=== PATIENT | female | born 1950 | race Caucasian/White ===

== ENCOUNTER 2022-01-16 01:39 | Emergency (ER) | payer OTHER, SELFPAY ==
[2022-01-16] VITALS (97 sets, daily range): BP systolic 122–229; BP diastolic 52–170; PULSE 31–88; RESP 5–29; TEMP 36.3–36.9; O2SAT 94–100
--- NOTE | 2022-01-16 01:30 | RT.EKG_ITS ---
APPROVED REPORT Exam: Resting ECG Reason for Exam: chest pain Patient Location: E HR:44 bpm ECG Measurements Heart Rate 44 AXIS MN 172 P 71 QRSd 95 QRS -19 QT 488 T 80 QTc 417 Conclusion Predominant 2:1 AV block...most complexes 2 Ps Left atrial enlargement...P, P'>60mS, <-0.15mV V1 Borderline ST depression, lateral leads...ST <-0.07mV, I aVL V5 V6 Physician: no stemi, 2nd degree block, 2:[address] elevation or depression
--- NOTE | 2022-01-16 01:45 | DI.RAD_ITS ---
Exam(s) XR PORTABLE CHEST AP EXAM: XR PORTABLE CHEST AP CLINICAL HISTORY: sob, 2nd degree heart block. TECHNIQUE: 2D digital imaging was performed. COMPARISON: No exams were available for comparison FINDINGS: Single AP portable view. Chest leads and cardiac pad noted Heart size is upper normal. The mediastinum is not widened. Lungs are clear. No infiltrates nor obvious pleural effusions. IMPRESSION: No acute pulmonary findings on this single AP portable view of the chest. DATA REPOSITORY: RADIATION DOSE DELIVERED: All CT scans at this facility use at least one of these dose optimization techniques: automated exposure control; mA and/or kV adjustment per patient size (includes targeted e xams where dose is matched to clinical indication); or iterative reconstruction.
--- NOTE | 2022-01-16 01:59 | ED.GENADUL_ITS ---
Discharge Plan Disposition Patient Disposition: [facility] Condition: Serious Discharge Details Clinical Impression: Heart block AV second degree Primary Care Provider: [facility] ED Provider: Eliezer Irizarry Home Meds and New Rx's Prescriptions: No Action losartan 50 mg Tablet 50 mg PO DAILY 0RF ibuprofen 200 mg Tablet 200 mg PO Q6H PRN0RF Viactiv 500-100-40 mg-unit-mcg Tablet,Chewable 1 tab PO BID 0RF Medical Decision Making This is a pleasant 71-year-old female with a past medical history of attention, diabetes mellitus, mild obesity, previous tobacco abuse, a distant history of melanoma that was surgically excised, who presents today for evaluation of palpitation and shortness of breath. Patient states that about a month ago she began to get more short of breath than normal when performing activity. She had no associated chest pain, or pleuritic chest pain. She has no cough fever or chills. The symptoms continued until about a week ago when they developed a notable increase in severity. She became short of breath with mild activity, but this was always immediately relieved with rest. She had no chest pain or shortness of them either. This evening at about midnight she woke up out of sleep and had a fluttering/palpitation feeling in her chest, she felt dizzy as well at that time. She had no chest pain that either. She called EMS she was brought in for further evaluation. Currently she states that she feels comfortable. She denies any dizziness headache or chest pain now. She denies any new medications. She denies any known family history of pacemaker use, but her grandparents did have cardiac disease. She denies any recent episodes of syncope. No other complaints at this time. No other modifying factors. Of historical note in 2019 the patient did have some palpitations. She was seen and evaluated at [facility] in. Zio patch at that time showed no evidence of significant pain, A. fib or a flutter. Physical exam is unremarkable. Patient currently is hypertensive, and has a heart rate that oscillates between the 40s 160s. She denies any current dizziness or chest pain. EKG demonstrates evidence of a second-degree 2-1 AV block. No evidence of significant ST elevation or depression. Bedside ultrasound was performed bedside limited echocardiogram showed good cardiac contractility, no pericardial effusion, no evidence of significant wall motion abnormality. Right ventricle does not appear overly dilated or stretch currently. At time of arrival patient immediately had pacer pads placed, will give 80 small fluid bolus, will monitor closely for electrolyte abnormality, get cardiac troponins, reach out to [facility] for potential electrophysiology consult and transfer. No indication for emergent epinephrine or dopamine at this time his blood pressure is elevated. And patient is otherwise asymptomatic currently. 4:11 AM Laboratory work-up has returned relatively unremarkable. CBC normal, electrolytes stable. Troponin normal, proBNP normal showing no signs of heart strain. Thyroid function normal. COVID test negative, chest x-ray unremarkable. Patient's heart rate remains in the low 40s, unclear if she currently feels asymptomatic at this time while resting in bed She denies any significant chest pain currently. Blood pressure is improved to the 180s systolic over 60s diastolic. I did contact [facility] cardiology and discussed the case with . After review of the case and imaging, she agrees with the plan for transfer to [facility] for further cardiology evaluation and management. Patient will be sent by [facility] for medical transfer. Patient's blood pressure is stable, she is asymptomatic while resting, we will keep the patient. I Did Discuss Transvenous Pacing with Cardiology, They Do Not Recommend It at This Time Based on Her Current Symptoms. I have extensively reviewed the treatment plan with the patient. I have addressed all patient concerns at this time. I have also discussed the plan with the admitting physician and they agree with the current assessment and plan and have agreed to assume responsibility for the patient. All parties demonstrate verbal understanding and agreement with our assessment and plan at this time. The documentation in this chart was dictated using Zango dictation software. Please excuse any dictation errors. At time of transfer the patient was reassessed and continued to demonstrate No signs of acute respiratory distress requiring intubation, hypotension requiring pressor support, or rapidly declining mental status. The patient is stable for transport. HPI General Date/Time Provider Initiated Documentation: 01/16/22 01:55 . HPI Narrative: This is a pleasant 71-year-old female with a past medical history of attention, diabetes mellitus, mild obesity, previous tobacco abuse, a distant history of melanoma that was surgically excised, who presents today for evaluation of palpitation and shortness of breath. Patient states that about a month ago she began to get more short of breath than normal when performing activity. She had no associated chest pain, or pleuritic chest pain. She has no cough fever or chills. The symptoms continued until about a week ago when they developed a notable increase in severity. She became short of breath with mild activity, but this was always immediately relieved with rest. She had no chest pain or shortness of them either. This evening at about midnight she woke up out of sleep and had a fluttering/palpitation feeling in her chest, she felt dizzy as well at that time. She had no chest pain that either. She called EMS she was brought in for further evaluation. Currently she states that she feels comfortable. She denies any dizziness headache or chest pain now. She denies any new medications. She denies any known family history of pacemaker use, but her grandparents did have cardiac disease. She denies any recent episodes of syncope. No other complaints at this time. No other modifying factors. Of historical note in 2019 the patient did have some palpitations. She was seen and evaluated at [facility] in. Zio patch at that time showed no evidence of significant pain, A. fib or a flutter. Related Data Home Medications Medication Instructions Recorded Confirmed calcium-vitamin D3-vitamin K 500 1 tab PO BID 01/16/22 01/16/22 mg-100 unit-40 mcg chewable tablet ibuprofen 200 mg tablet 200 mg PO Q6H PRN 01/16/22 01/16/22 losartan 50 mg tablet 50 mg PO DAILY 01/16/22 01/16/22 Allergies Allergy/AdvReac Type Severity Reaction Status Date / Time Penicillins AdvReac Mild Nausea Unverified 01/16/22 02:05 General Stated Complaint: SOB HUAN: 2 Review of Systems All systems reviewed & are unremarkable except as noted in HPI and below PFSH All Active Problems (Updated 01/16/22 @ 04:14 by Eliezer Irizarry DO) Heart block AV second degree (Acute) Social History Smoking/Tobacco Use Status: Former Tobacco Use Smoking risk assessment performed?: Yes Substance use type: does not use Do you feel safe at home: Yes Do you feel safe in your relationship?: Yes Exam Narrative Exam Narrative: 1.Const: Well-nourished, Well-developed, appearing stated age 2.Eyes: PERRL, no conjunctival injection, and symmetrical lids. 3.ENT: Atraumatic external nose and ears. Moist MM. Neck: Symmetric, trachea midline, No thyromegaly. 4.CVS: +S1/S2, No murmurs or gallops. Peripheral pulses 2+ and equal in all extremities. Brisk capillary refill in all extremities. 5.RESP: Unlabored respiratory effort. Clear to auscultation bilaterally. No wheezes rales or rhonchi 6.GI: Soft, Nontender/Nondistended, No hepatosplenomegaly. No guarding or rebound. 7.MSK: Normocephalic/Atraumatic, Extremities w/o deformity or ttp No cyanosis or clubbing, Normal movement of all extremities, no calf tenderness. 8.Skin: Warm, Dry. No rashes or lesions. 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 Sensation grossly intact, no focal neurologic deficits. 10.Psych: (AAO) x3. Appropriate mood and affect Course Vital Signs Vital signs: Vital Signs Temperature 36.3 C L 01/16/22 01:39 Pulse 61 01/16/22 01:39 Respiratory Rate 14 01/16/22 01:39 Blood Pressure 229/141 H 01/16/22 01:39 Pulse Oximetry 100 01/16/22 01:39 Temperature 36.3 C L 01/16/22 01:39 Temperature Source Skin 01/16/22 01:39 Pulse 61 01/16/22 01:39 Respiratory Rate 13 01/16/22 01:44 Respiratory Effort Non-Labored 01/16/22 01:44 Respiratory Depth Normal 01/16/22 01:44 Respiratory Pattern Normal 01/16/22 01:44 Blood Pressure 229/141 H 01/16/22 01:39 Blood Pressure Position Supine 01/16/22 01:39 Pulse Oximetry 100 01/16/22 01:39 Oxygen Delivery Method Room Air 01/16/22 01:39 Oxygen Flow Rate 0 01/16/22 01:39
[2022-01-16 02:09] LABS: Abs Immature Grans 0.01 10^3/uL (0.0-0.06); Absolute Basophil Count 0.04 10^3/uL (0.0-0.2); Absolute Eosinophil Count 0.23 10^3/uL (0.0-0.7); Absolute Lymphocyte Count 2.45 10^3/uL (1.2-3.4); Absolute Neutrophil Count 5.13 10^3/uL (1.2-6.7); Basophils % 0.5; Eosinophils % 2.7; HCT 42.3 % (36.0-46.0); HGB 13.8 g/dL (11.2-15.7); Immature Grans % 0.1; Lymphocytes % 28.3; MCH 30.3 pg (27.0-33.0); MCHC 32.6 % (32.0-36.0); MCV 92.8 fL (80-95); MPV 10.2 fL (8.0-11.0); Monocytes % 9.2; Neutrophils % 59.2; Platelet Count 272 10^3/uL (130-400); RBC 4.56 10^6/uL (3.93-5.22); RDW 13.2 % (11.7-14.6); RDW-SD 44.6 fL; WBC 8.66 10^3/uL (4.4-10.8)
--- NOTE | 2022-01-16 02:11 | DI.VRAD_ITS ---
PROCEDURE INFORMATION: Exam: XR Chest Exam date and time: 01/16/2022 1:52 AM Age: 71 years old Clinical indication: Shortness of breath; Patient HX: SOB, 2nd degree heart block TECHNIQUE: Imaging protocol: XR of the chest. Views: 1 view. COMPARISON: No relevant prior studies available. FINDINGS: Lungs: Unremarkable. No consolidation. Pleural spaces: Unremarkable. No pleural effusion. No pneumothorax. Heart/Mediastinum: Unremarkable. No cardiomegaly. Bones/joints: Degenerative changes. IMPRESSION: No acute findings. Dictated and Authenticated by: Christopher Perea MD. Ordering:JOSE aMrtins MD
[2022-01-16] MEDS: Normal Saline 1,000 ML 150 ML IV (02:13)
[2022-01-16 02:32] LABS: ALT 28 U/L (14-59); AST 14 U/L (15-37); Albumin 4.1 g/dL (3.4-5.0); Alkaline Phosphatase 73 U/L (46-116); Anion Gap 10.2 mmol/L (3-11); BUN 13 mg/dL (7-18); Bilirubin, Total 0.5 mg/dL (0.2-1.0); CO2 24.8 mmol/L (21.0-32.0); CREATININE 0.9 mg/dL (0.55-1.02); Calcium 8.9 mg/dL (8.5-10.1); Chloride 106 mmol/L (98-107); Glucose 109 mg/dL (74-106); NT-proBNP 235 pg/mL (<300); Potassium 3.4 mmol/L (3.5-5.1); Sodium 141 mmol/L (136-145); TSH (W/Ref FT4) 3.38 uIU/mL (0.36-3.74); Total Protein 7.8 g/dL (6.4-8.2); Troponin I < 50 ng/L (<or=60)
[2022-01-16 02:39] LABS: Source Nasal/Nares
[2022-01-16 03:17] LABS: COVID-19 PCR Negative (Negative)
[2022-01-16 04:45] LABS: Troponin I < 50 ng/L (<or=60)
== END 2022-01-16 07:25 | disposition short-term general hospital (02) ==
PROVIDERS: Emergency Provider Student in an Organized Health Care Education/Training Program; PCP Internal Medicine
DX: I44.1 Atrioventricular block, second degree (principal); R06.02 Shortness of breath; R07.9 Chest pain, unspecified; I10 Essential (primary) hypertension
CPT/HCPCS: 80053; 87635; 93005; 96360; 96361; 99285; 71045; 83880; 84443; 84484; 85025; 93010